=== PATIENT | female | born 2000 | race Caucasian/White ===

== ENCOUNTER 2024-08-26 09:24 | Outpatient (AMB) | payer OTHER, SELFPAY ==
--- NOTE | 2024-08-26 09:27 | MHC.OFFVIS ---
Vital Signs 08/26/24 09:40 Height 4 ft 9 in Weight 142 lb BMI 30.7 BP 111/62 Blood Pressure Location Lt brachial Position Sitting Pulse 93 Pulse Oximetry (%) 98 Oxygen Delivery Method Room Air Intake Visit Reasons: Elevation of levels of liver transaminase leves Intake Note: Patient new consult for Elevation of LFTs. Patient cc: LLQ pain/abdominal pain, vomiting, and diarrhea on and off. Professional Organizer Required: Yes Professional Organizer Name: Seun Johnson Accompanied by: Self / Same As Patient Allergies No Known Allergies Allergy (Verified 08/26/24 09:26) Medication List - Last Reconciled 08/26/24 by Adilia Mota CNP No Known Home Meds HPI HPI Elevation of levels of liver transaminase leves: Details: Patient is a 23-year-old female with PHM of obesity. Referred by urgent care for transaminitis. Pt is here today for further evaluation of transaminitis. Shares she sought U/C for evaluation of epistaxis June 2024 at the time of lab collection. She denies any known history of elevated liver enzymes. She reports intermittent right lower ab pain onset 2-3 months ago. Also with left shoulder pain after eating. She currently denies any pain. She reports regular BMs, without constipation or diarrhea. Associated symptoms: intermittent nausea, infrequent ? vomiting, burning pain to epigastric region Aggravating factors: as above Alleviating attempts: exercise Patient denies: fever/chills, appetite changes, regurgitation, dysphasia, unintentional wt loss or melena/hematochezia. Social hx: denies ETOH use the past three months, prior was consuming 1-2 beer or whiskey approx 1-2x/month denies recreational drug use hooka 2x/month -family hx as below -denies personal hx of CA -denies significant cardiopulmonary history PFSH Medical History (Updated 08/26/24 @ 10:57 by Adilia Mota CNP) Abdominal pain Elevated liver enzymes Family History (Updated 08/26/24 @ 10:10 by Adilia Mota CNP) Sister Gallbladder anomaly Mother H/O abdominal surgery Social History (Updated 08/26/24 @ 09:40 by Ashley You) Household Members: Family Alcohol intake: current Alcohol intake frequency: holidays/special occasions only Patient Tobacco Use Status: Never used Tobacco Review of Systems Const Reports as per HPI ENT Reports as per HPI Card Reports as per HPI Resp Reports as per HPI GI Reports as per HPI Reports as per HPI Physical Exam Const General: healthy appearing, no acute distress and well developed Nutritional Appearance: well nourished Orientation/consciousness: patient oriented x3 HEENT Head: Yes normal to inspection, Yes normocephalic and Yes atraumatic Face and sinus: Yes normal facial exam Eyes General: appearance normal, both eyes and all related structures Neck Neck: Yes normal visual inspection Resp Effort & Inspection: normal respiratory effort, able to speak in complete sentences, no tracheal deviation and symmetric chest movement Auscultation: clear to auscultation bilaterally Cardio Jugular venous distension: no JVD Rate: regular rate Rhythm: regular rhythm Heart sounds: S1 normal heart sound present, S2 normal heart sound present, no gallops and no murmurs GI Inspection: Yes normal to inspection and No distended Palpation (GI): Soft to palpation, not firm, nontender and No hepatosplenomegaly present Auscultation: normal bowel sounds Neuro General: patient oriented x3 Gait exam (Neuro): Normal gait present Psych Appearance: grossly normal Mental Status: mental status grossly normal Speech and movement: Normal speech and movement present Affect: normal affect Attitude: cooperative Thought process: Normal thought process present Thought content: Normal thought content present Insight: Good insight present (Psych) Judgement: Good judgement present (Psych) Results Reviewed Results Reviewed: Last collected 07/11/2024 by outside facility AST 126, ALT 221, alkaline phosphate 66, bilirubin < 0.2, total protein 7.7, Total cholesterol 255, triglycerides 95, HDL 79, LDL 160 INR 1.0, prothrombin time 11.4 Hemoglobin A1c 5.2 Assessment & Plan Assessment & Plan (1) Elevated liver enzymes: Code(s): R74.8 - Abnormal levels of other serum enzymes Category: Medical Plan: Further evaluation for hepatic causes will include consideration of: -Autoimmune liver disease -Genetic disorders Discussion on lifestyle modifications to promote healthy weight: -Well-balanced diet -Adequate hydration with water -continue physical activity -Continue alcohol cessations (2) Abdominal pain: Comment: + epigastric pain Code(s): R10.9 - Unspecified abdominal pain Category: Medical Qualifiers: Abdominal location: lower abdomen, unspecified Qualified Code(s): R10.30 - Lower abdominal pain, unspecified Plan: Patient presents with symptoms concerning for either gallbladder or hepatic origin. An abdominal ultrasound has been ordered to further evaluate these possibilities. Additional screening laboratory tests will also be obtained. Given the clinical presentation, there is low suspicion for appendiceal involvement, though the ultrasound will assist in further ruling this out. H. pylori testing was completed today to assess for a potential gastrointestinal source of symptoms. She declined pharmacologic management for pain at this time and will continue with supportive care Strict ER precautions reviewed. Plan Follow-up in 5 weeks or sooner as needed Time: I spent a total of 60 minutes on the date of encounter which includes: Preparing to see the patient (reviewed previous documentation, test results and medical history) Performing a medically appropriate exam and/or evaluation Ordering medications, tests, and procedures Documenting clinical information in the health record Orders: Orders US abdomen complete Today R10.9 - Unspecified abdominal pain Hepatitis B Surface Antibody Today R74.8 - Abnormal levels of other serum enzymes Mitochondrial Antibody Today R74.8 - Abnormal levels of other serum enzymes Prothrombin Time INR Today R74.8 - Abnormal levels of other serum enzymes Lipase Today R10.9 - Unspecified abdominal pain, R74.8 - Abnormal levels of other serum enzymes H Pylori Breath Test Today R10.30 - Lower abdominal pain, unspecified Ceruloplasmin Today R74.01 - Elevation of levels of liver transaminase levels IRON PROFILE Today R74.8 - Abnormal levels of other serum enzymes Hepatitis B Core Antibody Today R74.8 - Abnormal levels of other serum enzymes Hepatitis B Surface Ab Qnt Today R74.8 - Abnormal levels of other serum enzymes Hepatitis B Surface Antigen Today R74.8 - Abnormal levels of other serum enzymes Smooth Muscle Antibody Today R74.8 - Abnormal levels of other serum enzymes JOSSY Reflex Titer and Pattern Today R74.8 - Abnormal levels of other serum enzymes Comprehensive Met. Panel Today R74.8 - Abnormal levels of other serum enzymes Complete Blood Count no Diff Today R74.8 - Abnormal levels of other serum enzymes Coding Level of Care Code New Pt New Pt Level 5 (84957) Patient Type New Diagnoses Elevated liver enzymes R74.8 Lower abdominal pain R10.30 Abdominal location: lower abdomen, unspecified
[2024-08-26 09:40] VITALS: BP 111/62; PULSE 93; O2SAT 98; BMI 30.7
--- OUTSIDE RECORDS SUMMARY | 2024-08-26 10:18 | XMS_ITS | Clinical Summary ---
Author Organization [facility] Address [address] [place] [address] Care Team Providers Care As400 Administrator Name Role Phone Unavailable Primary Care Provider Unavailabl e Source Comments PLEASE NOTE, if this patient is a minor, it may be UNLAWFUL to discuss sensitive information that is contained in these records (such as FAMILY PLANNING, MENTAL HEALTH or SUBSTANCE ABUSE) with the minor patient's parent or other person without the patient's specific authorization.[facility] Social History Tobacco Use Types Packs/Day Years Used Date Smoking Tobacco: Never Assessed Social Connections Answer Date Recorded Connectedness 0 01/05/2024 Financial Resource Strain Answer Date R ecorded Financial Resource Strain 0 2021 Stress Answer Date Recorded Stress 0 12/13/2021 Physical Activity Answer Date Recorded Physical Activity 0 12/13/2021 Food Insecurity Answer Date Recorded Food 0 01/17/2024 Transportation Needs Answer Date Record ed Transportation 0 12/13/2021 Housing Stability Answer Date Recorded Housing 0 12/13/2021 Safety and Environment Answer Date Zia rded Safety 0 12/13/2021 Utilities Answer Date Recorded Utilities 0 12/13/2021 Employment Answer Date Recorded Stress 0 01/05/2024 Comments Unknown Sex and Gender Information Value Date Recorded Sex Assigned at Not on file Legal Sex Female 11:47 AM PDT Gender Identity Not on file Sexual Orientation Not on file Plan of Treatment Health Maintenance Due Date Last Done Comments Anxiety Screening 2001 HPV Screening 2001 Hepatitis C Screening 2001 Pap + HPV 2001 Tobacco Screening 2001 Chlamydia Screening 2014 Gonorrhea Screening 2014 Imm-Varicella (1 of 2 - 13+ 2-dose series) 2014 HIV Screening 2016 Imm-HPV (1 - 3-dose series) 2016 Relationship Safety Screening/Counseling 2016 Hypertension Screening (#1) 10/21/2019 Imm-DTaP/Tdap/Td (1 - Tdap) 2020 Imm-Hepatitis B (1 of 3 - 19+ 3-dose series) Cervical Cancer Screening 2022 Pap Smear 2022 [id number] ( - 2023- season) 2023 Imm-Influenza (#1) 2023 Alcohol and Drug Screen 04/23/2024 Depression Annual Screen 04/23/2024 Cervical Ablation/Cold-Knife Conization Discontinued Cervical Cryotherapy Discontinued Colposcopy Discontinued Endometrial Biopsy Discontinued Excision/Leep Discontinued HPV Genotyping Discontinued Vaginal Pap Discontinued Vulvoscopy Discontinued
== END 2024-08-26 10:55 | disposition home or self-care (01) ==
LOC: HO.HGI 09:25
PROVIDERS: Visit Provider Nurse Practitioner Family
DX: R74.01 Elevation of levels of liver transaminase levels (principal); R10.32 Left lower quadrant pain
CPT/HCPCS: 99204

== ENCOUNTER 2024-08-26 09:24 | Outpatient (REF) | payer OTHER, SELFPAY ==
[2024-08-26 11:31] LABS: Hematocrit 39.7 % (37.0-47.0); Hemoglobin 13.3 g/dl (12.0-16.0); Mean Corpuscular HGB Conc 33.5 g/dl (31.0-35.0); Mean Corpuscular Hemoglobin 29.4 pg (27.0-33.0); Mean Corpuscular Volume 87.8 fL (80.0-98.0); Platelet Count 223 X10*3/uL (160-400); Red Blood Count 4.52 X10*6/uL (4.20-5.50); Red Cell Distribution Width 13.8 % (11.0-16.0); White Blood Count 7.2 X10*3/uL (4.8-10.8)
--- OUTSIDE RECORDS SUMMARY | 2024-08-26 12:54 | XMS_ITS | Clinical Summary ---
Author Organization [facility] Address [address] [place] [address] Care Team Providers Care Ferryboat Ticket Taker Name Role Phone Unavailable Primary Care Provider [...] Cervical Cancer Screening 2022 Pap Smear 2022 [id number] ( - 2023- season) 2023 Imm-Influenza (#1) 2023 Alcohol and Drug Screen 04/23/2024 Depression Annual Screen 04/23/2024 Cervical Ablation/Cold-Knife Conization Discontinued Cervical Cryotherapy Discontinued Colposcopy Discontinued Endometrial Biopsy Discontinued Excision/Leep Discontinued HPV Genotyping Discontinued Vaginal Pap Discontinued Vulvoscopy Discontinued
[2024-08-26 14:53] LABS: Anion Gap 11 (12-20)
[2024-08-26 14:54] LABS: Alanine Aminotransferase 24 U/L (0-31); Albumin Level 4.4 g/dL (3.5-5.0); Aspartate Amino Transferase 22 U/L (5-31); Bilirubin Total 0.4 mg/dL (0.0-1.0); Blood Urea Nitrogen 13 mg/dL (9-16); Calcium 9.3 mg/dL (8.4-10.2); Carbon Dioxide 23 mmol/L (22-29); Chloride 108 mmol/L (96-108); Estimated Glomerular Filt Rate > 60; Glucose Random 84 mg/dL (60-115); Iron 111 mcg/dL (30-160); Lipase 25 U/L (8-78); Percent Iron Saturation 35 % (15-50); Potassium 3.9 mmol/L (3.3-5.1); Sodium 138 mmol/L (135-145); Total Iron Binding Capacity 313 mcg/dL (228-428); Total Protein 7.5 g/dL (6.5-8.0); Unsaturated Iron Binding 202 ug/dL
[2024-08-26 18:00] LABS: Alkaline Phosphatase 49 U/L (39-117)
[2024-08-27 04:24] LABS: Hepatitis B Surface Ab Qnt <5 mIU/mL (> OR = 10)
[2024-08-27 04:37] LABS: HBS Num1 0.19 mIU/mL (0-7.99); HBc Num1 0.04 S/CO (0.00-0.79); HBsAGNum1 0.35 S/CO (0.00-0.99); Hepatitis B Core Antibody Nonreactive (Nonreactive); Hepatitis B Surface Antigen Negative (Negative); ~Hepatitis B Surface Antibody NONREACTIVE (Nonreactive)
[2024-08-27 05:38] LABS: Ceruloplasmin 24 mg/dL (14-48)
[2024-08-27 14:40] LABS: H Pylori Breath Test Positive (Negative)
[2024-08-28 16:43] LABS: Mitochondrial Antibodies NEGATIVE (NEGATIVE)
[2024-08-29 08:28] LABS: Anti Nuclear Antibody Pattern Nuclear, Speckled; Anti Nuclear Antibody Screen POSITIVE (NEGATIVE); Anti Nuclear Antibody Titer 1:40 titer
[2024-08-29 08:47] LABS: Smooth Muscle Antibody <20 U (<20)
== END 2024-08-26 09:25 | disposition home or self-care (01) ==
LOC: HO.LAB 09:24
PROVIDERS: Visit Provider Nurse Practitioner Family
DX: R74.8 Abnormal levels of other serum enzymes (principal); R74.01 Elevation of levels of liver transaminase levels; R10.9 Unspecified abdominal pain; R10.30 Lower abdominal pain, unspecified
CPT/HCPCS: 36415; 80053; 82390; 83013; 83540; 83690; 85027; 85610; 86015; 86038; 86039; 86317; 86381; 86704; 86706; 87340

== ENCOUNTER 2024-09-30 09:37 | Outpatient (AMB) | payer OTHER, SELFPAY ==
--- NOTE | 2024-09-30 09:41 | A.OFFVIS_ITS ---
Intake Visit Reasons: F/U H Pylori Intake Note: Patient follow up for h pylori results. Patient cc: abdominal pain/bloating and GERD. Denies any other GI issues. County Engineer Required: Yes County Engineer Name: Pablo [id number], Joy [id number] Allergies No Known Allergies Allergy (Verified 09/30/24 09:41) HPI HPI F/U H Pylori: Details: Patient is a 23-year-old female with PMH of obesity. Referred by urgent care for transaminitis. Last seen for ab pain with transaminitis 4 weeks ago. Repeat LFTs including Alk phos WNL. Ab U/S is scheduled for 10/14/24. She was found to be H. pylori positive. However, did not tolerate quadurable therapy well and was discontinued prematurely with plan to trial alternative treatment. She continues to have concerns about medication side effects, particularly nausea, and specifically asks about the use and timing of probiotics and anti-nausea medications with new antibiotics. She did not complete the full 14-day course of omeprazole, having only taken one week. Today she reports no current abdominal pain, bowel changes, or other acute GI symptoms. [facility] Medical History (Updated 08/28/24 @ 10:49 by Adilia Mota CNP) Positive H. pylori test Abdominal pain Elevated liver enzymes Family History Sister Gallbladder anomaly Mother H/O abdominal surgery Social History Household Members: Family Alcohol intake: current Alcohol intake frequency: holidays/special occasions only Patient Tobacco Use Status: Never used Tobacco Review of Systems Const Reports as per HPI ENT Reports as per HPI Card Reports as per HPI Resp Reports as per HPI GI Reports as per HPI Reports as per HPI Physical Exam Const General: healthy appearing, no acute distress and well developed Nutritional Appearance: well nourished Orientation/consciousness: patient oriented x3 HEENT Head: Yes normal to inspection, Yes normocephalic and Yes atraumatic Face and sinus: Yes normal facial exam Eyes General: appearance normal, both eyes and all related structures Neck Neck: Yes normal visual inspection Resp Effort & Inspection: normal respiratory effort, able to speak in complete sentences, no tracheal deviation and symmetric chest movement Auscultation: clear to auscultation bilaterally Cardio Jugular venous distension: no JVD Rate: regular rate Rhythm: regular rhythm Heart sounds: S1 normal heart sound present, S2 normal heart sound present, no gallops and no murmurs GI Inspection: Yes normal to inspection and No distended Palpation (GI): Soft to palpation, not firm, nontender and No hepatosplenomegaly present Auscultation: normal bowel sounds Neuro General: patient oriented x3 Gait exam (Neuro): Normal gait present Psych Appearance: grossly normal Mental Status: mental status grossly normal Speech and movement: Normal speech and movement present Affect: normal affect Attitude: cooperative Thought process: Normal thought process present Thought content: Normal thought content present Insight: Good insight present (Psych) Judgement: Good judgement present (Psych) Results Reviewed Results Reviewed: Laboratory Tests 08/26/24 11:17 Sodium 138 Potassium 3.9 Chloride 108 Carbon Dioxide 23 Anion Gap 11 L BUN 13 Creatinine 0.60 Estimated GFR > 60 Random Glucose 84 Calcium 9.3 Iron 111 TIBC 313 % Saturation 35 Unsat Iron Binding 202 Total Bilirubin 0.4 AST 22 ALT 24 Alkaline Phosphatase 49 Total Protein 7.5 Albumin 4.4 Ceruloplasmin 24 Lipase 25 Mitochondrial AB Titer TNP Assessment & Plan Assessment & Plan (1) Positive H. pylori test: Code(s): A04.8 - Other specified bacterial intestinal infections Category: Medical Plan: Incomplete eradication due to inability to finish quadruple therapy; needs a more tolerable alternative. Symptoms during treatment include significant GI upset. Additional Tests: - H. pylori retesting: Urea breath test/stool antigen 4 weeks post-completion of current antibiotic course. Medications: - Amoxicillin 500mg oral 2 tabs BD x14 days with food - Clarithromycin 500mg oral 1 tab BD x14 days with food - Omeprazole 20mg oral BD x14 days (refill provided) - Lactobacillus probiotic oral BD (OTC, commence with antibiotics) - Ondansetron oral PRN for nausea (if symptoms recur; previously prescribed) Lifestyle Modifications: - Take antibiotics and probiotics with substantial meals, not snacks, to minimize GI side effects. (2) Elevated liver enzymes: Code(s): R74.8 - Abnormal levels of other serum enzymes Category: Medical Plan: Previously abnormal, now normalized; abdominal ultrasound ordered for further evaluation. Additional Tests: - Abdominal ultrasound scheduled for 10/14. Plan Jessica would like to follow up with provider after U/S. She understands retesting with nurse/MA will occur 4 weeks ( last week of October) after treatment. Call back precautions reviewed. Time: I spent a total of 25 minutes on the date of encounter which includes: Preparing to see the patient (reviewed previous documentation, test results and medical history) Performing a medically appropriate exam and/or evaluation Ordering medications, tests, and procedures Documenting clinical information in the health record Medications: New amoxicillin Take two tablets daily for 14 days. Best taken with food and probiotic. 1,000 mg (2 x 500 mg) PO BID 14 days 56 tabs 0RF clarithromycin Take one tablet twice daily for 14 days. Take with food. 500 mg PO BID 14 days 28 tabs 0RF Refilled Lactobacillus acidophilus Take once tablet twice daily until complete 10,000 mmu cells PO BID 60 caps 0RF omeprazole Take one tablet twice daily for 14 days. 20 mg PO BID 28 tabs 0RF Discontinued metronidazole Discontinued Reason: No Longer Medically Relevant 500 mg PO QID 56 tabs 0RF tetracycline Discontinued Reason: No Longer Medically Relevant 500 mg PO QID 14 days 56 caps 0RF Coding Level of Care Code Established Pt Est Pt Level 3 (89157) Patient Type Established Diagnoses Positive H. pylori test A04.8 Elevated liver enzymes R74.8
--- OUTSIDE RECORDS SUMMARY | 2024-09-30 10:36 | XMS_ITS | Clinical Summary ---
Author Organization [facility] Address [address] [place] [address] Care Team Providers Care Director Of Strategic Sourcing Name Role Phone Unavailable Primary Care Provider [...] Cervical Cancer Screening 2022 Pap Smear 2022 [id number] ( season) 2023 Alcohol and Drug Screen 04/23/2024 Depression Annual Screen 04/23/2024 Imm-Influenza (Season Ended) 2024 Cervical Ablation/Cold-Knife Conization Discontinued Cervical Cryotherapy Discontinued Colposcopy Discontinued Endometrial Biopsy Discontinued Excision/Leep Discontinued HPV Genotyping Discontinued Vaginal Pap Discontinued Vulvoscopy Discontinued
== END 2024-09-30 10:37 | disposition home or self-care (01) ==
LOC: HO.HGI 09:37
PROVIDERS: PCP Internal Medicine; Visit Provider Nurse Practitioner Family
DX: A04.8 Other specified bacterial intestinal infections (principal); R74.8 Abnormal levels of other serum enzymes
CPT/HCPCS: 99213

== ENCOUNTER → 2024-09-30 09:37 | Outpatient (BNVA) | payer OTHER, SELFPAY | PROVIDERS: PCP Internal Medicine; Visit Provider Nurse Practitioner Family | DX: A04.8 Other specified bacterial intestinal infections (principal); R74.01 Elevation of levels of liver transaminase levels | CPT/HCPCS: 99212 ==

== ENCOUNTER 2024-10-14 08:37 | Outpatient (REF) | payer OTHER, SELFPAY ==
--- NOTE | ~2024-10-14 | US_ITS ---
CLINICAL HISTORY: R10.9 - Unspecified abdominal pain --- Additional Notes or Special Instructions: RLQ pain US abdomen complete Comparison: None Provided Findings: Gallbladder unremarkable, no stone formation or wall thickening. Common duct measures 3.2 mm. No sonographic Hurst sign. Liver is homogeneous and normal in size and echogenicity. Main portal vein patent with normal direction of flow. Pancreas is unremarkable. Aorta and IVC patent and normal in caliber. The right kidney is normal, 11.1 cm in length. No focal abnormality or hydronephrosis. The left kidney is normal, 12.3 cm in length. No focal abnormality or hydronephrosis. The spleen is normal, 9.4 cm in length. No focal abnormality. Impression: No significant abnormalities. This document has been electronically signed by: Niles Ramirez MD on 10/14/2024 23:30:02
--- OUTSIDE RECORDS SUMMARY | 2024-10-14 08:56 | XMS_ITS | Clinical Summary ---
Author Organization [facility] Address [address] [facility] [address] [place] [address] Care Team Providers Care Life Sciences Manager Name Role Phone Unavailable Primary Care Provider [...] Cervical Cancer Screening 2022 Pap Smear 2022 [id number] ( season) 2023 Alcohol and Drug Screen 04/23/2024 Depression Annual Screen 04/23/2024 Imm-Influenza (Season Ended) 2024 Cervical Ablation/Cold-Knife Conization Discontinued Cervical Cryotherapy Discontinued Colposcopy Discontinued Endometrial Biopsy Discontinued Excision/Leep Discontinued HPV Genotyping Discontinued Vaginal Pap Discontinued Vulvoscopy Discontinued
== END 2024-10-14 08:38 | disposition home or self-care (01) ==
LOC: HO.US 08:37
PROVIDERS: Visit Provider Nurse Practitioner Family
DX: R10.9 Unspecified abdominal pain (principal)
CPT/HCPCS: 76700

== ENCOUNTER 2024-10-14 09:11 | Emergency (ER) | payer OTHER, SELFPAY ==
--- NOTE | ~2024-10-14 | CT_ITS ---
Exam: CT right lower leg with IV contrast. IV contrast: 85 mL Omnipaque 350 DLP: 289 mGY*cm Technique: Axial CT imaging was performed from the distal lower leg with IV contrast. Coronal and sagittal reformatted images were generated from the original axial data set. ALARA: The examination used one or more of the following radiation dose reduction techniques: Automated exposure control, iterative reconstruction, and/or adjustment of mA and/or KV. No prior HISTORY: Trauma, poor healing, hardened hematoma FINDINGS: There is mild fat stranding anterior to patellar tendon. There is focal fat stranding in the deep and superficial subcutaneous soft tissues over the anteromedial aspect of the mid lower leg measuring 6 cm superior-inferior. No loculated fluid is evident. Fluid/edema tracks cephalad and caudal to this area along the surface fascia overlying the tibia. There is no abnormal over a enhancement. There is mild skin thickening. No deep soft tissue fat stranding or fluid collection is present. No abnormalities are present along the major neurovascular bundles. The tendinous and ligamentous structures of the knee and ankle are grossly intact. No bony abnormalities are evident. CT/CT lower leg RT w IV con IMPRESSION: No evidence of hematoma or abscess. There is focal fat stranding which could represent edema and/or ecchymosis in the subcutaneous soft tissues of the medial mid-lower leg. Electronically signed by: Attila Cedillo MD 10/14/2024 02:14 PM EDT
[2024-10-14 09:21] VITALS: BP 110/69; PULSE 78; RESP 16; TEMP 36.7; O2SAT 97; BMI 31.1
--- NOTE | 2024-10-14 09:38 | ED.GENADULT ---
HPI - General Adult General Chief complaint: Extremity Injury, Lower Stated complaint: leg inj, swelling, numbness, feels like burning Time Seen by Provider: 10/14/24 09:17 Source: patient and legal aid (Citizen Of [place]) Mode of arrival: ambulatory Limitations: language barrier (Citizen [place]) History of Present Illness ED Provider: KAYLA LICONA PA-C HPI narrative: 23-year-old female with no significant pmhx presents to the ED today for evaluation of right lower extremity pain x3 weeks. Patient reports initial injury 3 weeks ago when she slipped and fell on a wet outdoor deck and slid into a metal bar. Reports hitting her right lower leg on the metal bar. No open wound or cut. Later on that night reports developing bruising to the right lower leg. She was evaluated at urgent care at that time and was told that the area would heal on its own. Endorses continued bruising and swelling to the right lower leg, now having pulsating sensations around the bruise. She was re-evaluated at urgent care yesterday for a 2nd opinion. She was advised to come to the ED for further imaging. She presents today wondering if she is healing appropriately. Patient was noted to endorse numbness and decreased sensation to the area in triage. On my evaluation, patient denies this. No new injury/ trauma/ falls in the last 3 weeks. Not on AC. Related Data Previous Rx's ?Medication ?Instructions ?Recorded bismuth subsalicylate 262 mg tablet 524 mg (2 x 262 mg) PO QID 14 days 08/29/24 #112 tabs ondansetron 4 mg disintegrating 4 mg translingual Q8H PRN nausea 09/04/24 tablet and vomiting #45 tabs Lactobacillus acidophilus 100 mg 10,000 mmu cells PO BID #60 caps 09/30/24 (1 billion cell) capsule amoxicillin 500 mg tablet 1,000 mg (2 x 500 mg) PO BID 14 09/30/24 days #56 tabs clarithromycin 500 mg tablet 500 mg PO BID 14 days #28 tabs 09/30/24 omeprazole 20 mg tablet,delayed 20 mg PO BID #28 tabs 09/30/24 release Allergies Allergy/AdvReac Type Severity Reaction Status Date / Time No Known Allergies Allergy Verified 10/14/24 09:24 Review of Systems Review of Systems: Constitutional: No fever, chills, fatigue, night sweats, weight changes ENT/Mouth: No ear pain, hearing loss, nasal congestion, sinus pain, rhinorrhea, sore throat Eyes: No eye pain, swelling, redness, vision changes, discharge Cardio: No chest pain, palpitations, WHITE, orthopnea, peripheral edema Pulm: No SOB, cough, sputum, wheezing, dyspnea, hemoptysis GI: No nausea, vomiting, hematemesis, abdominal pain, diarrhea, constipation, hematochezia, melena : No irregular bleeding, dysuria, frequency, urgency, hesitancy, hematuria, flank pain, urinary flow changes, urinary incontinence or retention MSK: No back pain, neck pain, joint pain, myalgias, +RLE pain Skin: No lesions, rashes Neuro: No weakness, numbness, paresthesias, LOC, dizziness, headache Psych: No anxiety/panic, depression, SI/HI, AH/VH All other systems reviewed and are negative. [facility], LAT[facility] Past Medical History Attestation statement: The following information was validated with the patient. Source: old records reviewed and nursing notes reviewed Medical History Positive H. pylori test Abdominal pain Elevated liver enzymes Family History Family History Sister Gallbladder anomaly Mother H/O abdominal surgery Social History Social History Household Members: Family Alcohol intake: current Alcohol intake frequency: holidays/special occasions only Patient Tobacco Use Status: Never used Tobacco Physical Exam ED Vital Signs: Vital Signs - 24 hr 10/14/24 09:21 10/14/24 14:59 10/14/24 15:09 Temperature 98.1 F 98.4 F 98.4 F Pulse Rate 78 70 70 Respiratory Rate 16 18 18 Blood Pressure 110/69 109/68 109/68 Pulse Oximetry 97 99 99 Oxygen Delivery Method Room Air Room Air Room Air BMI result Body Mass Index 31.1 vital signs stable, afebrile General: Well appearing, in no acute distress. Skin: Warm, dry, intact. No rashes or lesions. Head: Normocephalic, atraumatic. EENT: Hearing is intact b/l. Conjunctiva clear. Sclera is anicteric. PERRLA. EOM intact. Moist mucous membranes.? Neck: Supple without LAD Cardiac: Chest wall symmetric. RRR Lungs: Normal respiratory effort without accessory muscle use. CTA bilaterally. Ext: +see photo of right lower leg below. area of healing ecchmosis noted to medial aspect of right lower leg. small area of induration noted to proximal portion, measuring approx 3x2cm. no palpable fluctuance, warmth, tenderness. No blanchable erythema. Dependent ecchymosis noted around medial malleolus. No tenderness or deformity. FROM intact to all toes, ankle, knee. No calf tenderness. Compartments soft, compressible. 2+ PT/DP pulse intact. Neuro: AOx3. Normal speech. Strength 5/5 intact throughout. Sensation intact to light touch. NV intact distally. Ambulating with steady gait. Psych: Appropriate mood and affect. Responds appropriately to questions. Course Course Course Narrative: CBC without leukocytosis or left shift. No anemia, h&h stable. chemistry without acute electrolyte abnormality requiring intervention. no emeka. liver function wnl. beta hcg undetectable, not . ct right lower leg showing: CT lower leg RT w IV con IMPRESSION: No evidence of hematoma or abscess. There is focal fat stranding which could represent edema and/or ecchymosis in the subcutaneous soft tissues of the medial mid-lower leg. Patient has a healing contusion. advised OTC pain control, RICE therapy, outpatient follow up. Patient has remained stable throughout ED visit today. Discussed worrisome signs and symptoms and when to return to the ED. All questions answered at this time. Patient is agreeable with disposition and stable for discharge. Medications Administered Discontinued Medications Generic Name Dose Route Start Last Admin Trade Name Freq PRN Reason Stop Dose Admin Iohexol 100 ml 10/14/24 13:33 10/14/24 13:33 Iohexol 350 Mg/Ml 100 Ml Infus..Btl IV 10/14/24 13:34 85 ml ONCE ONE Administration Medical Decision Making Medical Decision Making [facility] Narrative: 23-year-old female with no significant pmhx presents to the ED today for evaluation of right lower extremity pain x3 weeks. Vital signs stable, afebrile. She is well-appearing and in no acute distress. see photo above. on exam of right lower leg, area of healing ecchmosis noted to medial aspect of right lower leg. small area of induration noted to proximal portion, measuring approx 3x2cm. no palpable fluctuance, warmth, tenderness. No blanchable erythema. Dependent ecchymosis noted around medial malleolus. No tenderness or deformity. FROM intact to all toes, ankle, knee. No calf tenderness. Compartments soft, compressible. Sensation intact to light touch. Cap refill intact. 2+ PT/DP pulse intact. Ambulating with steady gait. Differential diagnosis includes hematoma, ecchymosis, contusion Unlikely neurovascular compromise, threat to limb, compartment syndrome, cellulitis, abscess Plan for labs, CT, re-evaluation. Differential Diagnosis Differential Diagnoses: The differential diagnosis associated with the presentation includes As above Admission/Observation not indicated Lab Data MDM Lab Attestation statement: I reviewed the patient's lab results. As above 10/14/24 10:27 10/14/24 10:27 Labs: Lab Results 10/14/24 Range/Units 10:27 WBC 6.6 (4.8-10.8) X10*3/uL RBC 4.09 L (4.20-5.50) X10*6/uL Hgb 12.1 (12.0-16.0) g/dl Hct 36.0 L (37.0-47.0) % MCV 88.0 (80.0-98.0) fL MCH 29.6 (27.0-33.0) pg MCHC 33.6 (31.0-35.0) g/dl RDW 13.9 (11.0-16.0) % Plt Count 159 L D (160-400) X10*3/uL MPV 11.9 (9.4-12.3) fL Immature Gran % (Auto) 0.5 H (0.0-0.4) % Neut % (Auto) 48.6 (45-73) % Lymph % (Auto) 36.4 (20-40) % [place] % (Auto) 9.1 (2-11) % Eos % (Auto) 4.6 H (0-4) % Baso % (Auto) 0.8 (0-2) % Lymph # (Auto) 2.4 (1.2-4.9) X10*3/uL [place] # (Auto) 0.6 (0.1-1.2) X10*3/uL Eos # (Auto) 0.3 (0.0-0.4) X10*3/uL Baso # (Auto) 0.1 (0.0-0.2) X10*3/uL Abs Immat Gran (auto) 0.03 (0.00-0.03) X10*3/uL Absolute Neuts (auto) 3.2 (2.0-8.3) x10*3/uL Absolute Nucleated RBC 0.000 (0.0-0.012) X10*3/uL Nucleated RBC % (auto) 0.0 (0.0-0.2) /100WBC Sodium 139 (135-145) mmol/L Potassium 4.1 (3.3-5.1) mmol/L Chloride 110 H (96-108) mmol/L Carbon Dioxide 23 (22-29) mmol/L Anion Gap 10 L (12-20) BUN 15 (9-16) mg/dL Creatinine 0.60 (0.5-1.4) mg/dL Estim Creat Clear Calc 114.4 Estimated GFR > 60 Random Glucose 85 (60-115) mg/dL Calcium 9.3 (8.4-10.2) mg/dL Magnesium 1.9 (1.6-2.6) mg/dL Total Bilirubin 0.4 (0.0-1.0) mg/dL AST 19 (5-31) U/L ALT 25 (0-31) U/L Alkaline Phosphatase 42 (39-117) U/L Total Protein 7.2 (6.5-8.0) g/dL Albumin 4.6 (3.5-5.0) g/dL Beta HCG, Quant < 2 mIU/mL Independent Interpretation I performed an independent interpretation of an: CT Scan Interpretation: CT right lower leg without fluid collection Radiology Impression Discussion of test interpretation with radiology: I have reviewed the radiologist's reading. Radiologist Impression: Procedure(s): CT lower leg RT w IV con Accession Number(s): [id number] cc: Physician,None ; Kayla Licona~ Report Number: [id number]: Total DLP = 289.00 mGy-cm Exam: CT right lower leg with IV contrast. IV contrast: 85 mL Omnipaque 350 DLP: 289 mGY*cm Technique: Axial CT imaging was performed from the distal lower leg with IV contrast. Coronal and sagittal reformatted images were generated from the original axial data set. ALARA: The examination used one or more of the following radiation dose reduction techniques: Automated exposure control, iterative reconstruction, and/or adjustment of mA and/or KV. No prior HISTORY: Trauma, poor healing, hardened hematoma FINDINGS: There is mild fat stranding anterior to patellar tendon. There is focal fat stranding in the deep and superficial subcutaneous soft tissues over the anteromedial aspect of the mid lower leg measuring 6 cm superior-inferior. No loculated fluid is evident. Fluid/edema tracks cephalad and caudal to this area along the surface fascia overlying the tibia. There is no abnormal over a enhancement. There is mild skin thickening. No deep soft tissue fat stranding or fluid collection is present. No abnormalities are present along the major neurovascular bundles. The tendinous and ligamentous structures of the knee and ankle are grossly intact. No bony abnormalities are evident. CT/CT lower leg RT w IV con IMPRESSION: No evidence of hematoma or abscess. There is focal fat stranding which could represent edema and/or ecchymosis in the subcutaneous soft tissues of the medial mid-lower leg. Electronically signed by: Attila Cedillo MD 10/14/2024 02:14 PM EDT External Record Review External record reviewed: Inpatient record Prescription Management I considered prescription management with: Pain Medication Social Determinants Patient?s care significantly limited by Social Determinants of Health including: Other Social Determinant of Health Critical Care Time Critical Care Time Critical Care Time: No Discharge Plan Discharge Clinical Impression: Contusion of lower leg, right Patient Disposition: Home, Self-Care Instructions: Contusion in Adults (ED) Additional Instructions: Your workup today is reassuring. You may wear compression stockings to help with swelling. Elevate your right leg above heart level. Apply ice and heat for 20 minutes at a time. You may take your return at home for pain/swelling. Return with any new or worsening symptoms. In the case of an emergency call 911. Prescriptions: No Action bismuth subsalicylate 262 mg tablet 524 mg PO QID 14 Days Qty: 112 0RF Rx Instructions: Take two tablets four times daily for 14 days. ondansetron 4 mg tablet,disintegrating 4 mg translingual Q8H PRN (Reason: nausea and vomiting) Qty: 45 0RF Rx Instructions: place tablet on tongue and allow to dissolve three times a day NEEDED for nausea Lactobacillus acidophilus 100 mg (1 billion cell) capsule 10,000 mmu cells PO BID Qty: 60 0RF Rx Instructions: Take once tablet twice daily until complete omeprazole 20 mg tablet,delayed release (DR/EC) 20 mg PO BID Qty: 28 0RF Rx Instructions: Take one tablet twice daily for 14 days. amoxicillin 500 mg tablet 1,000 mg PO BID 14 Days Qty: 56 0RF Rx Instructions: Take two tablets daily for 14 days. Best taken with food and probiotic. clarithromycin 500 mg tablet 500 mg PO BID 14 Days Qty: 28 0RF Rx Instructions: Take one tablet twice daily for 14 days. Take with food. Referrals: Physician,None [Primary Care Provider, Medical] Interventions: ED Discharge Assessment Last Done: 10/14/24 15:09 Discharge Date/Time: 10/14/24 15:10 Print Language: Citizen [place]
[2024-10-14 10:31] LABS: MANUAL DIFF FLAG NO
[2024-10-14 10:32] LABS: Basophils Absolute Auto 0.1 X10*3/uL (0.0-0.2); Basophils Percent Auto 0.8 % (0-2); Eosinophils Absolute Auto 0.3 X10*3/uL (0.0-0.4); Eosinophils Percent Auto 4.6 % (0-4); Hemoglobin 12.1 g/dl (12.0-16.0); Imm Gran Abs Auto 0.03 X10*3/uL (0.00-0.03); Imm Gran Pct Auto 0.5 % (0.0-0.4); Lymphocytes Absolute Auto 2.4 X10*3/uL (1.2-4.9); Lymphocytes Percent Auto 36.4 % (20-40); Mean Corpuscular HGB Conc 33.6 g/dl (31.0-35.0); Mean Corpuscular Hemoglobin 29.6 pg (27.0-33.0); Mean Platelet Volume 11.9 fL (9.4-12.3); Monocytes Absolute Auto 0.6 X10*3/uL (0.1-1.2); Monocytes Percent Auto 9.1 % (2-11); Neutrophils Absolute Auto 3.2 x10*3/uL (2.0-8.3); Neutrophils Percent Auto 48.6 % (45-73); Platelet Count 159 X10*3/uL (160-400); Red Blood Count 4.09 X10*6/uL (4.20-5.50); Red Cell Distribution Width 13.9 % (11.0-16.0); White Blood Count 6.6 X10*3/uL (4.8-10.8)
[2024-10-14 10:50] LABS: Alanine Aminotransferase 25 U/L (0-31); Albumin Level 4.6 g/dL (3.5-5.0); Alkaline Phosphatase 42 U/L (39-117); Anion Gap 10 (12-20); Aspartate Amino Transferase 19 U/L (5-31); Bilirubin Total 0.4 mg/dL (0.0-1.0); Blood Urea Nitrogen 15 mg/dL (9-16); Calcium 9.3 mg/dL (8.4-10.2); Carbon Dioxide 23 mmol/L (22-29); Chloride 110 mmol/L (96-108); Creatinine Clr Calc Pharmacy 114.4; Estimated Glomerular Filt Rate > 60; Glucose Random 85 mg/dL (60-115); Magnesium 1.9 mg/dL (1.6-2.6); Potassium 4.1 mmol/L (3.3-5.1); Sodium 139 mmol/L (135-145); Total Protein 7.2 g/dL (6.5-8.0)
[2024-10-14 10:56] LABS: HCG Quantitative < 2 mIU/mL
[2024-10-14] MEDS: iohexoL 350 MG/ML 100 ML INFUS..BTL IV (13:33)
[2024-10-14 14:59] VITALS: BP 109/68; PULSE 70; RESP 18; TEMP 36.9; O2SAT 99
[2024-10-14 15:09] VITALS: BP 109/68; PULSE 70; RESP 18; TEMP 36.9; O2SAT 99
== END 2024-10-14 15:10 | disposition home or self-care (01) ==
PROVIDERS: Physician Assistant Medical; Emergency Provider Emergency Medicine
DX: M79.661 Pain in right lower leg (principal); S80.11XA Contusion of right lower leg, initial encounter; W01.198A Fall on same level from slipping, tripping and stumbling with subsequent striking against other object, initial encounter; Y93.9 Activity, unspecified; Y92.018 Other place in single-family (private) house as the place of occurrence of the external cause; Y99.9 Unspecified external cause status
CPT/HCPCS: 36415; 73701; 80053; 83735; 84702; 85025; 99283; 99284; Q9967

== ENCOUNTER → 2024-10-14 10:03 | Outpatient (BNV) | payer OTHER, SELFPAY | PROVIDERS: Emergency Provider Emergency Medicine; Visit Provider Radiology Diagnostic Radiology | DX: R22.41 Localized swelling, mass and lump, right lower limb (principal) | CPT/HCPCS: 73701 ==

== ENCOUNTER 2024-11-06 09:34 | Outpatient (AMB) | payer OTHER, SELFPAY ==
--- NOTE | 2024-11-06 09:43 | A.OFFVIS_ITS ---
Vital Signs 11/06/24 09:47 Height 4 ft 9 in Weight 142 lb BMI 30.7 BP 110/59 L Blood Pressure Location Lt brachial Position Sitting Pulse 79 Intake Visit Reasons: follow up U/S Intake Note: Patient follow up for Elevated liver enzymes and US results. Patient cc: abdominal bloating on and of. Clinical Documentation Manager Required: Yes Clinical Documentation Manager Name: Iliana Darden Accompanied by: Self / Same As Patient Allergies No Known Allergies Allergy (Verified 11/06/24 09:42) Medication List - Last Reconciled 11/06/24 by Adilia Mota CNP HPI HPI follow up U/S: Details: Patient is a 23-year-old female with PMH of obesity. Jessica presents for follow-up after completing antibiotics for H. pylori infection on October 19. She reports resolution of nausea post-treatment. Currently, she experiences occasional bloating, which is not consistently related to food intake and sometimes occurs on an empty stomach. Heartburn persists but is mainly triggered by certain foods. She notes that fatty and greasy foods provoke GI symptoms, while a healthy diet alleviates them. Bowel habits are regular, with no constipation or diarrhea reported. She completed the prescribed antibiotics and uses herbal supplements for heartburn, which she fi nds effective. She expresses concern about intermittent lower abdominal pain, for which she plans further gynecologic evaluation, as her prior abdominal ultrasound did not assess the ovaries. She was initially referred due to elevated LFTs at urgent care, but subsequent labs and a September ultrasound have been normal. [facility] Medical History (Updated 11/07/24 @ 07:17 by Adilia Mota CNP) Abdominal bloating Positive H. pylori test Abdominal pain Elevated liver enzymes Family History Sister Gallbladder anomaly Mother H/O abdominal surgery Social History Household Members: Family Alcohol intake: current Alcohol intake frequency: holidays/special occasions only Patient Tobacco Use Status: Never used Tobacco Review of Systems Const Reports as per HPI ENT Reports as per HPI Card Reports as per HPI Resp Reports as per HPI GI Reports as per HPI Reports as per HPI Physical Exam Vital Signs: Last Vital Signs Pulse 79 11/06/24 09:47 BP 110/59 L 11/06/24 09:47 BMI result Body Mass Index 30.7 Const General: healthy appearing, no acute distress and well developed Nutritional Appearance: well nourished Orientation/consciousness: patient oriented x3 HEENT Head: Yes normal to inspection, Yes normocephalic and Yes atraumatic Face and sinus: Yes normal facial exam Eyes General: appearance normal, both eyes and all related structures Neck Neck: Yes normal visual inspection Resp Effort & Inspection: normal respiratory effort, able to speak in complete sentences and symmetric chest movement Cardio Jugular venous distension: no JVD Neuro General: patient oriented x3 Gait exam (Neuro): Normal gait present Psych Appearance: grossly normal Mental Status: mental status grossly normal Speech and movement: Normal speech and movement present Affect: normal affect Attitude: cooperative Thought process: Normal thought process present Thought content: Normal thought content present Insight: Good insight present (Psych) Judgement: Good judgement present (Psych) Results Reviewed Results Reviewed: Date of Service: 10/14/24 Procedure(s): US abdomen complete Accession Number(s): [id number] cc: Adilia Mota CNP~ CLINICAL HISTORY: R10.9 - Unspecified abdominal pain --- Additional Notes or Special Instructions: RLQ pain US abdomen complete Comparison: None Provided Findings: Gallbladder unremarkable, no stone formation or wall thickening. Common duct measures 3.2 mm. No sonographic Hurst sign. Liver is homogeneous and normal in size and echogenicity. Main portal vein patent with normal direction of flow. Pancreas is unremarkable. Aorta and IVC patent and normal in caliber. The right kidney is normal, 11.1 cm in length. No focal abnormality or hydronephrosis. The left kidney is normal, 12.3 cm in length. No focal abnormality or hydronephrosis. The spleen is normal, 9.4 cm in length. No focal abnormality. Impression: No significant abnormalitie Assessment & Plan Assessment & Plan (1) Positive H. pylori test: Code(s): A04.8 - Other specified bacterial intestinal infections Category: Medical Plan: Positive s/p antibiotic treatment with symptoms improvement Additional Tests: Retest for H. pylori after four weeks post-antibiotic completion. Return for testing November 21 Medications: None further unless reinfection or persistence. Lifestyle Modifications: Continue balanced diet; manage symptom triggers. (2) Elevated liver enzymes: Code(s): R74.8 - Abnormal levels of other serum enzymes Category: Medical Plan: Initial referral for elevated LFTs; all subsequent labs and normal 10/14/24 ab US. No current evidence of hepatic pathology. Although, does need Hep B immunity. Will discussed and offer at 11/21/24 nurse visit. Lifestyle Modifications: Continue heart-healthy, liver-friendly diet; regular physical activity; adequate hydration. Follow-Up: Routine monitoring with PCP office; reassess if new symptoms or abnormal labs arise. (3) Abdominal bloating: Code(s): R14.0 - Abdominal distension (gaseous) Category: Medical Plan: Intermittent, otherwise asymptomatic Assess dietary triggers; consider low-FODMAP or alternative fiber recommendations to reduce bloating. Medications: Continue herbal supplement for heartburn if effective; She declined additional pharmacological management. Lifestyle Modifications: Maintain healthy diet; monitor and adjust intake based on symptom response. Follow-Up: As needed for ongoing GI symptoms or if dietary changes are ineffective. Plan Follow-up as needed after H. pylori testing or sooner if warranted. Time: I spent a total of 30 minutes on the date of encounter which includes: Preparing to see the patient (reviewed previous documentation, test results and medical history) Performing a medically appropriate exam and/or evaluation Ordering medications, tests, and procedures Documenting clinical information in the health record Orders: Orders Hepatitis B Adult Immunization 11/06/24 Z23 - Encounter for immunization Medications: New Engerix-B (PF) (hepatitis B virus vacc.rec(PF)) 1 mL IM ONCE 1 mL 0RF NS Z23 - Encounter for immunization Coding Level of Care Code Established Pt Est Pt Level 4 (22261) Patient Type Established Diagnoses Positive H. pylori test A04.8 Elevated liver enzymes R74.8 Abdominal bloating R14.0
[2024-11-06 09:47] VITALS: BP 110/59; PULSE 79; BMI 30.7
--- OUTSIDE RECORDS SUMMARY | 2024-11-06 09:51 | XMS_ITS | Clinical Summary ---
Author Organization [facility] Address [address] [place] [address] Care Team Providers Care Stamp Clerk Name Role Phone Unavailable Primary Care Provider [...] Cervical Cancer Screening 2022 Pap Smear 2022 [id number] ( - 2023- season) 2023 Alcohol and Drug Screen 04/23/2024 Depression Annual Screen 04/23/2024 Imm-Influenza (#1) 2024 Cervical Ablation/Cold-Knife Conization Discontinued Cervical Cryotherapy Discontinued Colposcopy Discontinued Endometrial Biopsy Discontinued Excision/Leep Discontinued HPV Genotyping Discontinued Vaginal Pap Discontinued Vulvoscopy Discontinued
== END 2024-11-06 10:18 | disposition home or self-care (01) ==
LOC: HO.HGI 09:35
PROVIDERS: PCP Internal Medicine; Visit Provider Nurse Practitioner Family
DX: A04.8 Other specified bacterial intestinal infections (principal); R74.8 Abnormal levels of other serum enzymes; R14.0 Abdominal distension (gaseous)
CPT/HCPCS: 99214

== ENCOUNTER → 2024-11-06 09:34 | Outpatient (BNVA) | payer OTHER, SELFPAY | PROVIDERS: PCP Internal Medicine; Visit Provider Nurse Practitioner Family | DX: A04.8 Other specified bacterial intestinal infections (principal); R74.8 Abnormal levels of other serum enzymes; R14.0 Abdominal distension (gaseous) | CPT/HCPCS: 99212 ==